=== PATIENT | female | born 1980 | race Caucasian/White ===

== ENCOUNTER 2024-05-21 14:58 | Emergency (ER) | payer SELFPAY ==
[2024-05-21 14:59] VITALS: BP 157/120; PULSE 128; RESP 17; TEMP 36.2; O2SAT 97
[2024-05-21 15:00] VITALS: BP 157/120; PULSE 118; RESP 20; TEMP 36.3; O2SAT 96; BMI 29.2
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
--- NOTE | 2024-05-21 15:04 | NURSING ---
NO OLD EKGS
[2024-05-21 15:17] LABS: Absolute Lymphocyte Count 1.83 X10^3/uL (0.83-4.51); Absolute Neutrophil Count 2.6 X10^3/uL (2.0-7.7); Basophil# 0.02 X10^3/uL; Basophil% 0.4 % (0-1); Eosinophil# 0.11 X10^3/uL; Eosinophils% 2.1 % (0-5); Hematocrit 39.5 % (37-47); Lymphocyte # 1.83 X10^3/ul (0.83-4.51); Lymphocyte % 35.5 % (19-41); Mean Corp Hgb Conc 35.4 g/dL (32-36); Mean Corpuscular Hgb 37.9 pg (27.0-32.0); Mean Platelet Vol. 8.9 fl (6.2-12.0); Monocyte# 0.55 X10^3/uL; Monocyte% 10.7 % (0-10); NRBC Flagged by Analyzer 0 % (0-5); Neutrophil # 2.62 X10^3/uL (2.7-7.7); Neutrophil % 50.9 % (47-70); Platelet Count 268 K/mm3 (150-450); RBC Distribution Width CV 15.3 % (11.6-14.6); RBC Distribution Width SD 60.7 fl (35.1-43.9); Red Blood Count 3.69 M/mm3 (4.2-5.4); White Blood Count 5.2 K/mm3 (4.4-11.0)
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
[2024-05-21 15:25] LABS: International Normalized Ratio 0.9; Prothrombin Time (Protime)PT. 12.6 SECONDS (11.7-14.9)
[2024-05-21 15:26] LABS: Partial Thromboplast Time 26.8 Seconds (24.1-36.2)
[2024-05-21 15:32] LABS: Anion Gap 6 (5-15); BUN 10 mg/dL (7-18); BUN/Creat Ratio 14.6 RATIO (10-20); Calcium,Total 8.6 mg/dL (8.5-10.1); Chloride 112 mmol/L (98-107); Creatinine, Serum 0.68 mg/dL (0.55-1.02); EST Glomerular Filtration Rate 99 mL/min (>60); Est Glom Filt Rate - Afr Amer 120 mL/min (>60); Estimated Creatinine Clearance 124.69 ml/min; Glucose 95 mg/dL (74-106); Potassium 3.1 mmol/L (3.5-5.1); Sodium Level 145 mmol/L (136-145)
[2024-05-21 15:59] VITALS: BP 149/98; PULSE 88; PULSE 90; RESP 18; RESP 24; O2SAT 100; O2SAT 98
[2024-05-21] MEDS: 0.9% Normal Saline (1000mL) 1,000 ML 999 ML IV (16:07)
[2024-05-21 16:18] LABS: Lactic Acid 1.9 mmol/L (0.4-1.9)
[2024-05-21 16:26] LABS: Internal QC Validated? YES +Cl - CLEAR BKGD; Pregnancy, Serum, hCG Quali. NEGATIVE Negative; Record Kit Lot#, Serum Preg. 772476
[2024-05-21 17:00] VITALS: BP 124/88; PULSE 80; RESP 17; O2SAT 95
[2024-05-21 17:07] LABS: Amphetamine Urine VISTA NEGATIVE (<1000 ng/mL); Barbiturate Urine VISTA NEGATIVE (< 200 ng/mL); Benzodiazepine Urine VISTA NEGATIVE (< 200 ng/mL); Cocaine Urine VISTA NEGATIVE (< 300 ng/mL); Ecstacy Urine VISTA NEGATIVE (< 500 ng/mL); Methadone Urine VISTA NEGATIVE (< 300 ng/mL); PCP Urine VISTA NEGATIVE (< 25 ng/mL); THC Urine VISTA NEGATIVE (< 50 ng/mL)
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
[2024-05-21 17:42] VITALS: BP 124/79; PULSE 71; RESP 18; TEMP 35.6; O2SAT 94
[2024-05-21] MEDS: Ibuprofen 600 MG Tablet PO (17:45)
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
[2024-05-23 06:03] LABS: Vista UDS pH Range 6
== END 2024-05-21 17:50 | disposition home or self-care (01) ==
PROVIDERS: Emergency Provider Emergency Medicine; Visit Provider Emergency Medicine
DX: S02.2XXA Fracture of nasal bones, initial encounter for closed fracture (principal); R56.9 Unspecified convulsions; F10.129 Alcohol abuse with intoxication, unspecified; Y90.8 Blood alcohol level of 240 mg/100 ml or more; M54.2 Cervicalgia; H57.04 Mydriasis; G43.909 Migraine, unspecified, not intractable, without status migrainosus
CPT/HCPCS: 70450; 70486; 71250; 72125; 72170; 80048; 80307; 82077; 83605; 84703; 85025; 85610; 85730; 93005; 96360; 99283; J7030; A4216